=== PATIENT | female | born 1935 | race Asian ===

== ENCOUNTER 2022-07-25 08:13 | Observation (INO) | payer MEDICAID, SELFPAY ==
[2022-07-25] VITALS (15 sets, daily range): BP systolic 138–163; BP diastolic 43–126; PULSE 59–85; RESP 14–18; TEMP 36.3–36.6; O2SAT 96–100; BMI 23.2; BMI 23.3
--- NOTE | 2022-07-25 08:25 | RAD_ITS ---
STUDY: X-RAY - RIGHT WRIST REASON FOR EXAM: Female, 86 years old. Injury/Pain TECHNIQUE: 3 view(s) of the wrist were obtained. COMPARISON: None. FINDINGS: Comminuted fracture of the distal radial metaphysis with extension to the articular surface. Normal radiocarpal articulation. There is a dorsal dislocation of the distal radial ulnar joint. Normal carpal bones. Normal carpal articulations. Normal carpometacarpal articulation of the thumb. Normal second through fifth carpometacarpal articulations. Normal visualized metacarpal bones. Soft tissue swelling. RAD/Wrist min 3 Views IMPRESSION: Comminuted fractures of the distal radial metaphysis with extension to the articular surface. Dorsal dislocation of the distal ulna at the level of the radial ulnar joint. Electronically Signed: Bay Mckenzie MD at 9:34 EDT ,
--- NOTE | 2022-07-25 08:33 | CT_ITS ---
STUDY: CT CERVICAL SPINE WITHOUT CONTRAST REASON FOR EXAM: Female, 86 years old. Injury/Pain RADIATION DOSAGE (If Supplied By Facility): CTDIvol = ( 12.30 ) mGy, DLP = ( 266.41 ) mGycm TECHNIQUE: High resolution transaxial imaging was performed without contrast material. Sagittal and coronal images were reconstructed. Individualized dose optimization techniques were used for this CT. COMPARISON: None FINDINGS: Normal craniovertebral junction. There are degenerative changes of the anterior atlantoaxial articulation. Normal odontoid process. There is straightening of the normal cervical lordosis. Normal vertebral bodies and posterior osseous elements. C2-3: Normal endplates. Normal disc height and morphology. Normal central canal and intervertebral neuroforamina. C3-4: Mild degree of disc space narrowing. Facet joint osteoarthritis and hypertrophy. Uncovertebral arthrosis. Mild degree of bilateral neural foraminal stenosis. C4-5: Marked degree of disc space narrowing. Spondylosis. Uncovertebral arthrosis. Bilateral neural foraminal stenosis. Mild degree of central canal stenosis. C5-6: Marked degree of disc space narrowing. Spondylosis. Mild degree of bilateral neural foraminal stenosis. C6-7: Moderate degree of disc space narrowing. Spondylosis. Bilateral neural foraminal stenosis worse on the right side. C7-T1: Normal endplates. Normal disc height and morphology. Normal central canal and intervertebral neuroforamina. Normal visualized soft tissue structures. CT/Spine Cervical without Contras IMPRESSION: Multilevel degenerative changes, as described above. Electronically Signed: Bay Mckenzie MD at 9:31 EDT ,
--- NOTE | 2022-07-25 08:33 | RAD_ITS ---
STUDY: X-RAY - PELVIS AND LEFT HIP REASON FOR EXAM: Female, 86 years old. Left hip pain following a fall. TECHNIQUE: 3 views of the pelvis and hip. COMPARISON: None. FINDINGS: There is a non-specific bowel gas pattern. There are multiple calcified phleboliths. Degenerative changes of the lower lumbar spine. Normal bilateral iliac wings, sacroiliac joints and visualized sacrum. Normal bilateral superior and inferior pubic rami. Normal pubic symphysis. Normal bilateral ischial tuberosities. Normal visualized femoral head. Normal acetabulum. Normal hip joint. RAD/HIP, UNI W/ Pelvis 2-3 Views IMPRESSION: No acute abnormality is seen. Electronically Signed: Bay Mckenzie MD at 9:34 EDT ,
--- NOTE | 2022-07-25 08:33 | CT_ITS ---
STUDY: CT BRAIN WITHOUT CONTRAST REASON FOR EXAM: Female, 86 years old. An injury due to a fall. RADIATION DOSAGE (If Supplied By Facility): CTDIvol = ( 44.99 ) mGy, DLP = ( 779.24 ) mGycm TECHNIQUE: Transaxial CT imaging of the brain was performed without administration of intravenous contrast material. Individualized dose optimization techniques were used for this CT. COMPARISON: No relevant priors. FINDINGS: Normal soft tissue structures. Normal calvarium. There is mild cerebral atrophy with widening of the extra-axial spaces and ventricular dilatation. There are areas of decreased attenuation within the white matter tracts of the supratentorial brain, consistent with microvascular disease changes. There are small punctate calcifications of the basal ganglia which are seen in the aging brain as a normal variant. Normal brainstem. Dense calcifications are seen in both cerebellar hemispheres. There is no intracranial hemorrhage. There are no findings of an acute ischemic infarction. Air-fluid levels are seen in both maxillary sinuses more prominent on the left side. There is opacification of the ethmoid sinuses and mucosal thickening of the frontal sinuses. Mucosal thickening of the anterior aspect of the sphenoid sinus. CT/Brain/Head without Contrast IMPRESSION: Chronic involutional changes of the brain. Dense calcification in the cerebellar hemispheres bilaterally as well as in the basal ganglia. Pansinusitis. Electronically Signed: Bay Mckenzie MD at 9:30 EDT ,
--- NOTE | 2022-07-25 08:39 | EDS_ITS ---
HPI History of Present Illness Chief Complaint: Upper Extremity Injury Informant: patient, family and EMS Narrative Narrative: Patient is an 86-year-old female presenting with right wrist injury. She is right-hand dominant. Patient apparently tripped on her shoes this morning and fell. She did hit the back of her head. She is complaining of pain, deformity and open fracture of her right wrist in addition to mild headache and left hip pain. She takes 81 mg aspirin daily. Denies any prior orthopedic injury to her wrist. Denies any associated numbness or tingling. No other complaints at this time. No report of loss of consciousness. Tetanus Immunization: Unknown [facility] Medical History unable to obtain Home Medications amlodipine 5 mg tablet 5 mg PO PRN PRN htn 07/25/22 [History Last Taken Unknown] aspirin 81 mg capsule 81 mg PO DAILY 07/25/22 [History Last Taken Unknown] losartan 50 mg tablet 50 mg PO BID 07/25/22 [History Last Taken Unknown] pantoprazole 40 mg tablet,delayed release 40 mg PO DAILY 07/25/22 [History Last Taken Unknown] Allergy/AdvReac Type Severity Reaction Status Date / Time Penicillins [PCN] Allergy NEEDS Verified 07/25/22 08:16 FOLLOW-UP Social History Smoking Status: Unknown if ever smoked ROS ROS ED Constitutional Constitutional ED: Denies chills or fever(s) Eyes Eyes: Denies change in vision ENT ENT ED: Denies rhinorrhea or sore throat Cardiovascular Cardiovascular: Denies chest pain Respiratory/Chest Respiratory/Chest: Denies cough Gastrointestinal Gastrointestinal: Denies nausea or vomiting Musculoskeletal Musculoskeletal: Reports other Details: Right wrist pain, left hip pain Integumentary Reports other Details: Laceration to right wrist with open fracture Neurologic Neurologic: Reports headache(s); Denies paresthesias or weakness Psychiatric Psychiatric: Denies anxiety Hematologic/Lymphatic Hematologic/Lymphatic: Denies easy bleeding or easy bruising EXAM Physical Exam Const Vital Signs: 07/25/22 08:17 Temperature 97.5 F L Temperature Source Temporal Pulse Rate 77 Respiratory Rate 14 Blood Pressure 138/96 H Blood Pressure Mean 110 Pulse Ox 99 Oxygen Delivery Method Room Air Positive well nourished and well developed General Appearance ED: well developed and NAD HEENT Reports moist mucous membranes HEENT Narrative: No hemotympanum, no signs of facial trauma, no epistaxis or nasal septal hematoma normocephalic and atraumatic; Negative for tenderness Eyes PERRL and EOMs intact bilaterally Neck full ROM and supple Neck Narrative: No midline tenderness Chest Wall inspection of chest normal and palpation of chest normal Resp normal respiratory effort and clear to auscultation bilaterally Cardio regular rate and regular rhythm Cardio Narrative: 2+ bilateral radial pulses, brisk capillary refill of the right hand GI non-tender and non-distended Extremity Extremity Narrative: Deformity with open fracture of the distal ulna of the right wrist. Movement of the fingers intact and sensation intact of the fingers. Patient has some tenderness with logroll of the left hip. No rotational deformity. Pelvis is stable. No other bony tenderness or deformity appreciated. Neuro oriented x3, CN's II-XII intact bilaterally, moves all extremities, no focal motor deficits and no sensory deficits noted Psych mental status grossly normal Skin Skin Narrative: 3 cm full-thickness laceration of the distal right wrist overriding the ulna MDM MDM MDM Narrative Medical decision making narrative: Patient is evaluated after mechanical fall. She has an obvious open distal radius/ulnar fracture. Wet to dry dressing is placed when gentle traction and pressure did not spontaneously reduce the fracture. She is neuro vastly intact distally. She is given fentanyl for pain and IV cefazolin antibiotic prophylaxis. Tetanus is updated. Limited trauma work-up including head CT, C-spine as well as a hip x-ray also obtained. No other acute injuries are seen. X-rays interpreted by myself as well as radiology are significant for distal comminuted radial fracture with associated open dislocation of the distal ulna. Case is discussed with Ortho, Dr. Marshall, who will take the patient to the OR for intraoperative cleanout and reduction. Patient is admitted to the hospital service for request of orthopedics. Patient is kept n.p.o., start maintenance fluids and given her morning blood pressure medicine, losartan, per her request. Patient is redosed with fentanyl in the emergency room. She is instantly found to be anemic with uncertain chronicity. No obvious signs of hemorrhagic shock or active bleeding. Lab Data Attestation: I reviewed the patient's lab results. Rhythm Strip Rhythm Strip: Sinus Rhythm Rate: 82 Ectopy: None EKG Initial EKG: Attestation: I personally reviewed and interpreted this EKG as follows: Interpretation: Sinus Rhythm Comments: Normal sinus rhythm at a rate of 82 Normal axis Normal intervals Normal ST segment Prior EKG tracings: not available for review Prior: No Prior Discharge Plan Triage Chief Complaint: Upper Extremity Injury ED Provider: Meghan Quiroz Dx/Rx/DC Orders Clinical Impression: Open fracture of distal end of right radius, Open dislocation of distal end of right ulna, Need for [id number] (Tdap) vaccine, Anemia, Fall on same level from tripping, Closed head injury Primary Care Provider: ANIRUDH HURD Disposition Disposition: [facility] Lab / Micro Data Attestation: I reviewed the patient's lab results. Result Diagrams: 07/25/22 08:42 07/25/22 08:42 Labs: Laboratory Results - last 24 hr 07/25/22 08:42: WBC 8.2, RBC 3.10 L, Hgb 9.8 L, Hct 30.1 L, MCV 97.1, MCH 31.6, MCHC 32.6, RDW Std Deviation 41.5, RDW Coeff of Douglas 11.9, Plt Count 227, MPV 9.5, Immature Gran % (Auto) 0.400, Neut % (Auto) 71.1 H, Lymph % (Auto) 13.4 L, [place] % (Auto) 9.2, Eos % (Auto) 5.0, Baso % (Auto) 0.9, Absolute Neuts (auto) 5.8, Absolute Lymphs (auto) 1.09, Nucleated RBC % 0 07/25/22 08:42: Sodium 140, Potassium 4.4, Chloride 105, Carbon Dioxide 29.0, Anion Gap 6, BUN 26 H, Creatinine 0.80, Estim Creat Clear Calc 44.40, Est GFR (MDRD) Af Amer 88, Est GFR (MDRD) Non-Af 73, BUN/Creatinine Ratio 32.7 H, Glucose 114 H, Calcium 9.2 07/25/22 08:42: PT 12.4, INR 1.0 07/25/22 08:42: Phosphorus 3.6, Magnesium 2.2 Rhythm Strip Rhythm Strip: Sinus Rhythm Rate: 82 Ectopy: None Radiology Impression Wrist X-Ray 07/25/22 08:25 IMPRESSION: Comminuted fractures of the distal radial metaphysis with extension to the articular surface. Dorsal dislocation of the distal ulna at the level of the radial ulnar joint. Electronically Signed: Bay Mckenzie MD at 9:34 EDT , Brain CT 07/25/22 08:33 IMPRESSION: Chronic involutional changes of the brain. Dense calcification in the cerebellar hemispheres bilaterally as well as in the basal ganglia. Pansinusitis. Electronically Signed: Bay Mckenzie MD at 9:30 EDT , Cervical Spine CT 07/25/22 08:33 IMPRESSION: Multilevel degenerative changes, as described above. Electronically Signed: Bay Mckenzie MD at 9:31 EDT , Hip/Pelvis X-Ray 07/25/22 08:33 IMPRESSION: No acute abnormality is seen. Electronically Signed: Bay Mckenzie MD at 9:34 EDT , Forearm X-Ray 07/25/22 09:05 IMPRESSION: Diffuse soft tissue swelling. Comment a fracture of the distal metaphysis with extension to the articular surface. Dorsal subluxation of the ulna at the distal radial ulnar joint. Electronically Signed: Bay Mckenzie MD at 9:32 EDT ,
[2022-07-25] MEDS: fentaNYL 100 MCG/2 ML Ampul 50 MCG IV ×2 (08:43→10:41)
[2022-07-25] MEDS: Diphth,Pertuss(Acell),Tet Vac 0.5 ML Vial IM (08:45)
[2022-07-25 08:56] LABS: Absolute Lymphocyte Count 1.09 X10^3/uL (0.83-4.51); Absolute Neutrophil Count 5.8 X10^3/uL (2.0-7.7); Basophil# 0.07 X10^3/uL; Basophil% 0.9 % (0-1); Eosinophil# 0.41 X10^3/uL; Hematocrit 30.1 % (37-47); Hemoglobin 9.8 g/dL (12.0-15.0); Lymphocyte # 1.09 X10^3/ul (0.83-4.51); Lymphocyte % 13.4 % (19-41); Mean Corp Hgb Conc 32.6 g/dL (32-36); Mean Corpuscular Hgb 31.6 pg (27.0-32.0); Mean Corpuscular Volume 97.1 fL (81-99); Mean Platelet Vol. 9.5 fl (6.2-12.0); Monocyte# 0.75 X10^3/uL; Monocyte% 9.2 % (0-10); NRBC Flagged by Analyzer 0 % (0-5); Neutrophil # 5.81 X10^3/uL (2.7-7.7); Neutrophil % 71.1 % (47-70); Platelet Count 227 K/mm3 (150-450); RBC Distribution Width CV 11.9 % (11.6-14.6); RBC Distribution Width SD 41.5 fl (35.1-43.9); White Blood Count 8.2 K/mm3 (4.4-11.0)
[2022-07-25 09:03] LABS: Prothrombin Time (Protime)PT. 12.4 SECONDS (11.7-14.9)
--- NOTE | 2022-07-25 09:05 | RAD_ITS ---
STUDY: X-RAY - RIGHT RADIUS AND ULNA REASON FOR EXAM: Female, 86 years old. Injury/Pain TECHNIQUE: 2 view(s) of the forearm. COMPARISON: None. FINDINGS: There is non-specific soft tissue swelling. Comminuted fracture of the distal radial metaphysis with extension to the articular surface. Dorsal subluxation of the ulna at the distal radial ulnar joint. RAD/Forearm 2 Views IMPRESSION: Diffuse soft tissue swelling. Comment a fracture of the distal metaphysis with extension to the articular surface. Dorsal subluxation of the ulna at the distal radial ulnar joint. Electronically Signed: Bay Mckenzie MD at 9:32 EDT ,
[2022-07-25 09:11] LABS: Anion Gap 6 (5-15); BUN 26 mg/dL (7-18); BUN/Creat Ratio 32.7 RATIO (10-20); Calcium,Total 9.2 mg/dL (8.5-10.1); Chloride 105 mmol/L (98-107); EST Glomerular Filtration Rate 73 mL/min (>60); Est Glom Filt Rate - Afr Amer 88 mL/min (>60); Glucose 114 mg/dL (74-106); Potassium 4.4 mmol/L (3.5-5.1); Sodium Level 140 mmol/L (136-145)
[2022-07-25] MEDS: Cefazolin 2 GM in 0.9% Normal Saline 100 ML IV (09:16)
--- NOTE | 2022-07-25 09:38 | EKG12_ITS ---
Test Reason : PRE-OP Blood Pressure : / mmHG Vent. Rate : 082 BPM Atrial Rate : 082 BPM P-R Int : 158 ms QRS Dur : 088 ms QT Int : 364 ms P-R-T Axes : 084 071 051 degrees QTc Int : 425 ms Normal sinus rhythm Normal ECG Confirmed by PEDRO ACOSTA, LORI ([id number]), state editor BLAINE HENRY ([id number]) on 07/26/2022 1:26:04 PM Referred By: SHAUNA Confirmed By:TOM VASQUEZ MD
--- NOTE | 2022-07-25 09:40 | NURSING ---
NO OLD EKGS
[2022-07-25] MEDS: 0.9% Normal Saline 1,000 ML 100 ML IV (09:49)
--- NOTE | 2022-07-25 10:13 | NURSING ---
DR PADILLA FOR DR VILLATORO
--- NOTE | 2022-07-25 10:23 | HP.PCM.HOS_ITS ---
HPI - General General Date of Admission: 07/25/22 Date of Service: 07/25/22 Chief Complaint: Fall and fracture of the right wrist HPI Narrative mavis ALLAN a 86 F was brought to ED by EMS after she tripped on the shoe and fall. She fell backward and hit her head and on her right dominant hand and had severe pain. Patient complains of pain over right side wrist 10/10 intensity, constant, aggravated by movement. Patient is being given pain medication. Swelling around the right wrist area. No fever. No dysuria/burning micturition. No abdominal pain. No loss of consciousness. In ED, she had an x-ray which shows open right distal radius fracture with dislocated ulna. X-ray of wrist and forearm reviewed myself and agree with the report. Patient being evaluated by orthopedic surgeon and plan is to take her to the OR. Vitals reviewed. BP 142/67. Patient has history of hypertension and GERD and is on losartan, amlodipine and pantoprazole. Denies chronic cardiac disease including CHF, coronary artery/NV or arrhythmia. Denies chronic lung disease. No smoking history. No chronic alcohol use or substance use. Family history is noncontributory to the patient fall and fracture. [facility] Medical History unable to obtain Home Medications amlodipine 5 mg tablet 5 mg PO PRN PRN htn 07/25/22 [History Last Taken Unknown] aspirin 81 mg capsule 81 mg PO DAILY 07/25/22 [History Last Taken Unknown] losartan 50 mg tablet 50 mg PO BID 07/25/22 [History Last Taken Unknown] pantoprazole 40 mg tablet,delayed release 40 mg PO DAILY 07/25/22 [History Last Taken Unknown] Allergy/AdvReac Type Severity Reaction Status Date / Time Penicillins [PCN] Allergy NEEDS Verified 07/25/22 08:16 FOLLOW-UP Social History Smoking Status: Unknown if ever smoked ROS ROS Narrative Constitutional: In severe pain because of her right wrist. HEENT: Reports systems reviewed and no addt'l complaints, except as documented Respiratory/Chest: Denies chest pain, shortness of breath at rest or with exertion Gastrointestinal: Denies coffee ground emesis, hematemesis or vomiting Genitourinary: Denies burning urination or new urinary tract symptoms Musculoskeletal: As mentioned in HPI. No other fracture of extremity pain Neurologic: Denies seizure-like activity. No LOC. skin: Open fracture of right wrist area with bandage on. No laceration on head Endocrinology: Reports systems reviewed and no addt'l complaints, except as documented Hematologic/Lymphatic: Reports systems reviewed and no addt'l complaints, except as documented Rest 14 ROS are negative except as mentioned in HPI Vital Signs Vital Signs Vital Signs: 07/25/22 08:17 07/25/22 09:16 07/25/22 10:02 Temperature 97.5 F L Temperature Source Temporal Pulse Rate 77 85 Respiratory Rate 14 Blood Pressure 138/96 H 144/55 H 142/67 H Blood Pressure Mean 110 84 92 Pulse Ox 99 99 97 Oxygen Delivery Method Room Air Room Air Room Air Weight Weight: 135 lb 5.821 oz Body Mass Index (BMI) 23.2 Physical Exam Narrative General: Alert, Oriented x3, Cooperative in moderate distress due to pain. HEENT: Atraumatic, PERRLA, EOMI, Normocephalic Oral: No Gingival or Mucosal Lesions/ Ulcerations Neck: Supple, No JVD, Negative Carotid Bruits Lungs: Air entry equal in bilateral lung bases. No crepitation/rhonchi Cardiovascular: Regular rate, Regular Rhythm, Normal S1, Normal S2, No murmurs Abdomen: Bowel Sounds Present, Soft, Non Tender, Non-Distended : No renal angle tenderness. No suprapubic tenderness. Extremities: No edema, Capillary Refill Less than 3 Seconds Skin: Open fracture of right wrist radius. Musculoskeletal: Right wrist is medially deviated and in supine position. Swelling with tenderness. Covered with bandage. No tenderness of other joints of extremity. Neurological: Cranial nerves II-XII grossly intact, DTR 2+/4 and Symmetrical, Neuro grossly intact Psych/Mental Status: Flat affect. Results Lab / Micro Data Result Diagrams: 07/25/22 08:42 07/25/22 08:42 Labs: Laboratory Results - last 24 hr 07/25/22 08:42: WBC 8.2, RBC 3.10 L, Hgb 9.8 L, Hct 30.1 L, MCV 97.1, MCH 31.6, MCHC 32.6, RDW Std Deviation 41.5, RDW Coeff of [place] 11.9, Plt Count 227, MPV 9.5, Immature Gran % (Auto) 0.400, Neut % (Auto) 71.1 H, Lymph % (Auto) 13.4 L, [place] % (Auto) 9.2, Eos % (Auto) 5.0, Baso % (Auto) 0.9, Absolute Neuts (auto) 5.8, Absolute Lymphs (auto) 1.09, Nucleated RBC % 0 07/25/22 08:42: Sodium 140, Potassium 4.4, Chloride 105, Carbon Dioxide 29.0, Anion Gap 6, BUN 26 H, Creatinine 0.80, Estim Creat Clear Calc 44.40, Est GFR (MDRD) Af Amer 88, Est GFR (MDRD) Non-Af 73, BUN/Creatinine Ratio 32.7 H, Glucose 114 H, Calcium 9.2 07/25/22 08:42: PT 12.4, INR 1.0 Radiology Impression Wrist X-Ray 07/25/22 08:25 IMPRESSION: Comminuted fractures of the distal radial metaphysis with extension to the articular surface. Dorsal dislocation of the distal ulna at the level of the radial ulnar joint. Electronically Signed: Bay Mckenzie MD at 9:34 EDT , Brain CT 07/25/22 08:33 IMPRESSION: Chronic involutional changes of the brain. Dense calcification in the cerebellar hemispheres bilaterally as well as in the basal ganglia. Pansinusitis. Electronically Signed: Bay Mckenzie MD at 9:30 EDT , Cervical Spine CT 07/25/22 08:33 IMPRESSION: Multilevel degenerative changes, as described above. Electronically Signed: Bay Mckenzie MD at 9:31 EDT , Hip/Pelvis X-Ray 07/25/22 08:33 IMPRESSION: No acute abnormality is seen. Electronically Signed: Bay Mckenzie MD at 9:34 EDT , Forearm X-Ray 07/25/22 09:05 IMPRESSION: Diffuse soft tissue swelling. Comment a fracture of the distal metaphysis with extension to the articular surface. Dorsal subluxation of the ulna at the distal radial ulnar joint. Electronically Signed: Bay Mckenzie MD at 9:32 EDT , Assessment & Plan Assessment/Plan (1) Colles' fracture: (2) Dislocation of right ulnar styloid: PLAN: Plan This 86-year-old female is being admitted after trip and fall resulting into open right wrist fracture 1. Open comminuted fracture of distal right metaphysis with extension to the articular surface and dorsal dislocation of distal end of ulna after fall probably due to underlying osteoporosis: [facility] Pain control. PT and OT ordered. X-ray individually reviewed and is documented as above. is being consulted. Plan is OR for ORIF. CT head and C-spine without contrast in ED reviewed. No acute abnormality but chronic changes. Hip and pelvis x-ray no acute abnormality Perioperative risk evaluation: Prior to fall, patient was active did not had restriction in walking or climbing stairs. No shortness of breath or dyspnea on exertion. Patient did not have chronic cardiac disease or chronic lung disease. Overall, she is low to moderate perioperative risk for moderate risk procedure. Electrolytes sodium, potassium, magnesium and phosphorus are in normal range. 2. Hypertension: BP is 143/53. Heart rate sinus rhythm. Twelve-lead EKG normal sinus rhythm at 82 bpm, QTC 425 ms. Chest x-ray initially reviewed and no active cardiopulmonary abnormality. 3. GERD: On PPI. 4. VTE prophylaxis, moderate risk: Heparin 5000 subcutaneous every 8 hourly started after surgery when hemostasis is controlled. Bilateral SCDs Living will/advanced directive/end of life care: Patient does not have living will or advanced directive. Patient next to kin is her son. I talked to patient's son over the phone and daughter present in the room. After discussion of benefits/risks procedures involved with full code, DNR CC arrest and DNR CC, all 3 agreed for full code. They will make living will/advanced directive with power of criminal attorney for health later on. Patient, her son and daughter do want artificial life support including intubation, tube feed, ventilator and/chest compression, central venous cath eter, vasopressor and DC shock if needed Total time spent in [id number] encounter in discussion of advanced directive 16 minutes. Clinical Impression(s) from Imaging Studies Wrist X-Ray 07/25/22 08:25 IMPRESSION: Comminuted fractures of the distal radial metaphysis with extension to the articular surface. Dorsal dislocation of the distal ulna at the level of the radial ulnar joint. Brain CT 07/25/22 08:33 IMPRESSION: Chronic involutional changes of the brain. Dense calcification in the cerebellar hemispheres bilaterally as well as in the basal ganglia. Pansinusitis. Cervical Spine CT 07/25/22 08:33 IMPRESSION: Multilevel degenerative changes, as described above. Hip/Pelvis X-Ray 07/25/22 08:33 IMPRESSION: No acute abnormality is seen. Forearm X-Ray 07/25/22 09:05 IMPRESSION: Diffuse soft tissue swelling. Comment a fracture of the distal metaphysis with extension to the articular surface. Dorsal subluxation of the ulna at the distal radial ulnar joint. Chest X-Ray 07/25/22 10:58 IMPRESSION: Hyperinflation. The lungs are clear. Electronically Signed: Bay Mckenzie MD at 11:11 EDT , Charges/Coding Visit Charges OBSV E&M: 78606 Initial observation care L3 Procedures Hospitalists Procedures: [id number] Advncd Care Plan 30 Min
[2022-07-25] MEDS: Losartan Potassium 50 MG Tablet PO (10:31)
--- NOTE | 2022-07-25 10:32 | NURSING ---
MED SURG OBS VALERIE OPEN DISTAL RADIUS/ULNA FRACTURE
[2022-07-25 10:46] LABS: Magnesium 2.2 mg/dL (1.6-2.6); Phosphorus 3.6 mg/dL (2.5-4.9)
--- NOTE | 2022-07-25 10:58 | RAD_ITS ---
STUDY: X-RAY CHEST REASON FOR EXAM: Female, 86 years old. Pre op TECHNIQUE: Single AP portable view of the chest. COMPARISON: None. FINDINGS: Hyperinflation. The lungs are clear. There is no demonstrated pleural abnormality. Normal size heart. Normal mediastinum and humble. Normal visualized pulmonary arteries. There is atherosclerotic calcification of the aortic arch with tortuosity. There are degenerative changes of the visualized thoracic spine. Normal visualized ribs, clavicles, and shoulders. There is no demonstrated abnormality of the visualized soft tissue structures of the upper abdomen. RAD/Chest 1 View (Portable) IMPRESSION: Hyperinflation. The lungs are clear. Electronically Signed: Bay Mckenzie MD at 11:11 EDT ,
[2022-07-25] MEDS: Lactated Ringers 1,000 ML 100 ML IV (12:26)
--- NOTE | 2022-07-25 13:06 | CONS.ORTHO ---
HPI Consult Data Date of Consult: 07/25/22 HPI Narrative HPI Narrative: ADOLFO PRESLEY, is a 86 F who presents To [facility] after mechanical fall on an outstretched right hand earlier this morning. Immediate bleeding, gross deformity and exposed bone was noted in her right wrist. Patient is right-hand dominant. Patient was brought to [facility] emergency department where x-rays revealed a comminuted distal radius fracture with suspected DRUJ instability and soft tissue gas consistent with a open fracture. Patient was seen by the emergency room physician where IV Ancef was administered, tetanus updated. Provisional irrigation was performed. Physician was unable to reduce the bone underneath the skin. Moist gauze was placed over top of the bone and laceration. Patient denies any numbness or tingling. Denies any antecedent right wrist surgery or problems. Denies fevers, chills, nausea vomiting, chest pain or shortness of breath. Patient has had nothing to eat or drink since arrival to hospital this morning. [facility] Medical History unable to obtain Home Medications amlodipine 5 mg tablet 5 mg PO PRN PRN htn 07/25/22 [History Last Taken 07/25/22 09:00] aspirin 81 mg capsule 81 mg PO DAILY 07/25/22 [History Last Taken 07/25/22 09:00] atorvastatin 20 mg tablet 20 mg PO DAILY cholesterol 07/25/22 [History Last Taken Unknown] docusate sodium 100 mg capsule 100 mg PO DAILY health maintenance 07/25/22 [History Last Taken 07/25/22 09:00] losartan 50 mg tablet 50 mg PO BID 07/25/22 [History Last Taken 07/25/22 09:00] multivitamin 1 tab PO DAILY health maintence 07/25/22 [History Last Taken 07/25/22 09:00] pantoprazole 40 mg tablet,delayed release 40 mg PO DAILY 07/25/22 [History Last Taken 07/25/22 09:00] vitamin B complex 1 tab PO DAILY health maintenance 07/25/22 [History Last Taken 07/25/22 09:00] Allergy/AdvReac Type Severity Reaction Status Date / Time Penicillins [PCN] Allergy NEEDS Verified 07/25/22 08:16 FOLLOW-UP Social History Smoking Status: Never smoker ROS ROS Narrative 12 point review of systems obtained, negative is less otherwise noted in HPI. Vital Signs Vital Signs Vital Signs: 07/25/22 08:17 07/25/22 09:16 07/25/22 10:02 Temperature 97.5 F L Temperature Source Temporal Pulse Rate 77 85 Respiratory Rate 14 Respiratory Effort Respiratory Depth Respiratory Pattern Blood Pressure 138/96 H 144/55 H 142/67 H Blood Pressure Mean 110 84 92 Blood Pressure Source Blood Pressure Position Blood Pressure Location Pulse Ox 99 99 97 Oxygen Delivery Method Room Air Room Air Room Air 07/25/22 10:44 07/25/22 11:03 07/25/22 12:10 Temperature 98 F 97.7 F L Temperature Source Temporal Temporal Pulse Rate 85 76 Respiratory Rate 14 18 Respiratory Effort Respiratory Depth Respiratory Pattern Blood Pressure 142/67 H 143/53 H 161/70 H Blood Pressure Mean 92 83 100 Blood Pressure Source Monitor Blood Pressure Position Semi-Fowlers Blood Pressure Location Left Arm Pulse Ox 97 98 98 Oxygen Delivery Method Room Air Room Air Room Air 07/25/22 12:28 Temperature Temperature Source Pulse Rate Respiratory Rate Respiratory Effort Normal Non-Labored Respiratory Depth Normal Respiratory Pattern Normal Blood Pressure Blood Pressure Mean Blood Pressure Source Blood Pressure Position Blood Pressure Location Pulse Ox Oxygen Delivery Method Room Air Weight Weight: 127 lb 6.835 oz Body Mass Index (BMI) 23.3 Physical Exam Narrative General -A&Ox3, NAD, appears stated age. Vital signs stable, afebrile. Respiratory -normal work of breathing, no intercostal retractions. CV -pulses regular, brisk capillary refill ?4 limbs. Abdomen-soft, nontender, nondistended. No guarding, rigidity, rebound tenderness. Musculoskeletal/neurologic -full range of motion nontender throughout bilateral lower extremities, left upper extremity with full sensation and strength in all dermatomes and myotomes. No midline cervical tenderness. Right upper extremity-obvious deformity in exposed ulnar head right wrist. Longitudinal laceration measuring 3 cm long distal wrist. Closed reduction performed with reduction of the ulna underneath the skin. Cardinal motions right hand are intact. Slow venous oozing is noted from the laceration. Brisk capillary fill in the fingertips. Sensation intact to light touch in all dermatomes of the right hand. Appropriately tender over the wrist. Nontender over the elbow and upper arm. Lab / Micro Data Result Diagrams: 07/25/22 08:42 07/25/22 08:42 Labs: Laboratory Results - last 24 hr 07/25/22 08:42: WBC 8.2, RBC 3.10 L, Hgb 9.8 L, Hct 30.1 L, MCV 97.1, MCH 31.6, MCHC 32.6, RDW Std Deviation 41.5, RDW Coeff of [place] 11.9, Plt Count 227, MPV 9.5, Immature Gran % (Auto) 0.400, Neut % (Auto) 71.1 H, Lymph % (Auto) 13.4 L, [place] % (Auto) 9.2, Eos % (Auto) 5.0, Baso % (Auto) 0.9, Absolute Neuts (auto) 5.8, Absolute Lymphs (auto) 1.09, Nucleated RBC % 0 07/25/22 08:42: Sodium 140, Potassium 4.4, Chloride 105, Carbon Dioxide 29.0, Anion Gap 6, BUN 26 H, Creatinine 0.80, Estim Creat Clear Calc 44.40, Est GFR (MDRD) Af Amer 88, Est GFR (MDRD) Non-Af 73, BUN/Creatinine Ratio 32.7 H, Glucose 114 H, Calcium 9.2 07/25/22 08:42: PT 12.4, INR 1.0 07/25/22 08:42: Phosphorus 3.6, Magnesium 2.2 Rhythm Strip Rhythm Strip: Sinus Rhythm Rate: 82 Ectopy: None Radiology Impression Wrist X-Ray 07/25/22 08:25 IMPRESSION: Comminuted fractures of the distal radial metaphysis with extension to the articular surface. Dorsal dislocation of the distal ulna at the level of the radial ulnar joint. Electronically Signed: Bay Mckenzie MD at 9:34 EDT , Brain CT 07/25/22 08:33 IMPRESSION: Chronic involutional changes of the brain. Dense calcification in the cerebellar hemispheres bilaterally as well as in the basal ganglia. Pansinusitis. Electronically Signed: Bay Mckenzie MD at 9:30 EDT , Cervical Spine CT 07/25/22 08:33 IMPRESSION: Multilevel degenerative changes, as described above. Electronically Signed: Bay Mckenzie MD at 9:31 EDT , Hip/Pelvis X-Ray 07/25/22 08:33 IMPRESSION: No acute abnormality is seen. Electronically Signed: Bay Mckenzie MD at 9:34 EDT , Forearm X-Ray 07/25/22 09:05 IMPRESSION: Diffuse soft tissue swelling. Comment a fracture of the distal metaphysis with extension to the articular surface. Dorsal subluxation of the ulna at the distal radial ulnar joint. Electronically Signed: Bay Mckenzie MD at 9:32 EDT , Chest X-Ray 07/25/22 10:58 IMPRESSION: Hyperinflation. The lungs are clear. Electronically Signed: Bay Mckenzie MD at 11:11 EDT , Assessment & Plan Assessment/Plan (1) Open fracture of right distal radius and ulna: PLAN: Open fracture right distal radius and ulna -Closed reduction performed emergency department achieving reduction of the bone underneath the skin. Sugar-tong splint was applied. We will proceed with irrigation debridement and fixation of distal radius fracture. Spanning plate fixation is planned due to the immense comminution of the distal radius and soft tissue injury. The risk, benefits, alternatives to the procedure reviewed with the patient at length and informed consent obtained. Scheduled Ancef 1 g every 8 hours until 24 hours postoperatively. Further recommendations pending surgical procedure. N.p.o., maintenance IV fluids.
--- NOTE | 2022-07-25 16:45 | RAD_ITS ---
STUDY: X-RAY - RIGHT WRIST REASON FOR EXAM: Female, 86 years old. ORIF TECHNIQUE: 5 intraoperative view(s) of the wrist were obtained. Fluoroscopy time dosage was not provided. COMPARISON: Right wrist, 07/25/2022 (913). FINDINGS: The images demonstrate plate along the posterior aspect of the hand and wrist from the second metacarpal to the mid radial shaft. There is mildly improved alignment of the distal fibular fracture. There is also a plate and screws along the dorsal aspect of the distal ulna. Please refer to the operative report for further details RAD/Wrist min 3 Views IMPRESSION: Internal fixation of a right wrist fracture in the OR. Electronically Signed: Vasquez Borrego DO at 18:45 EDT ,
[2022-07-25] MEDS: Cefazolin 1 GM/50 ML BAG IV (17:04)
--- NOTE | 2022-07-25 18:58 | OP.PCM_ITS ---
Report of Operation Date of Procedure: 07/25/22 Description of Surgical Findings:: Preoperative diagnosis: Right open distal radius and ulna fractures Postoperative diagnosis: Right grade II open distal radius and ulna fractures Procedure: 1. Irrigation and debridement of skin, subcutaneous tissue, fascia, and bone 2 x 1 cm 2. Open reduction internal fixation right ulnar styloid 3. Application of dorsal spanning plate right wrist Surgeon: Mumtaz Marshall DO Anesthesia: General endotracheal Anesthesiologist: Dr. Edwards Complications: None apparent Drains: None Estimated blood loss: 100 cc Urinary output: None recorded IV fluids: 900 cc crystalloid Specimens: None Surgical implants: Arthrex dorsal spanning plate, ulnar styloid hook plate Surgical indications: This is an 86-year-old female who is visiting family from [place] who sustained a mechanical fall this morning on an outstretched right hand. She sustained an open distal radius and ulna fracture. X-rays at [facility] emergency department revealed a severely comminuted intra- articular distal radius fracture. The ulna head herniated out the skin with associated 2 cm skin tear laceration. I saw the patient in consultation. IV Ancef was administered upon arrival and tetanus was updated. I recommended irrigation debridement of her wrist with open reduction internal fixation possible dorsal spanning plate application of the wrist. The risk, benefits, alternatives to procedure reviewed with patient at length and she agreed to proceed. We reviewed the need for removal of the dorsal spanning plate in the future after fracture had healed. Risks included but were not limited to bleeding, infection, loss of life or limb, need for additional surgery, persistent pain, nonhealing bone or wounds, neurovascular injury, DVT or PE, risk of anesthesia. Patient expressed understands risks and wished proceed with surgery. Description of procedure: Patient was seen in preoperative holding area. She was identified by name, medical record number, date of . The operative extremity was marked with a surgical marker. We confirmed informed consent with the patient and all questions were answered to her satisfaction. At time of her procedure, patient was brought to the operative suite and po sitioned supine on a standard operating table. All bony prominences were well- padded. General anesthesia was administered. After adequate anesthesia, a well-padded pneumatic tourniquet was applied to the upper arm of the operative extremity. We then spun the bed 90 degrees. Splint was then removed. A Betadine prep was performed. We then draped the right upper extremity in normal, sterile orthopedic fashion. 1 g Ancef was administered IV prior to the incision by anesthesia staff. Tourniquet was never inflated. I first turned my attention to the laceration about the distal ulna. Skin edges were debrided sharply with a 15 blade scalpel. Bone ends were debrided with combination of 15 blade scalpel and rongeur. Any devitalized fascia and periosteum was excised. I then thoroughly irrigated this wound with 6 L normal saline solution utilizing cystoscopy tubing. I then extended the laceration approximately 1 cm distal to evaluate the ulnar styloid and TFCC which was not able to be retrieved out of the wound. The TFCC was attached to the ulnar styloid. This was reduced with a pointed reduction tenaculum anatomically to the ulnar head. I held this in place with 2 K wires. This provided significant improvement and stability of the wrist. I then turned my attention to the radius. I brought in C arm fluoroscopy to evaluate the fracture under traction. Traction was applied. Due to the severe comminution especially in the metadiaphyseal junction, I elected to proceed with dorsal spanning plate instead of traditional open reduction internal fixation. Articular alignment was acceptable following traction. I then marked the skin for a dorsal spanning plate utilized in the second metacarpal in the bare area of the distal radial shaft. 3 cm incisions were made overlying the dorsum of the radial shaft. Proximally, skin was sharply incised. I bluntly dissected down the level of the fascia. Fascia was split in line with the incision. Tendons were retracted radially and ulnarly gaining access to the radial shaft. Periosteum was elevated. I then turned my attention to the second metacarpal. Skin was sharply incised with a 15 blade scalpel. Dorsal veins and extensor tendon was mobilized to gain access to the second metacarpal shaft. I then passed a [place] beneath the extensor tendons to the level of the proximalmost incision. I then passed the dorsal spanning plate following the tract of the [place] from proximal to distal. I then held the plate in place with lobster-claw clamps. I secured the plate to the radial shaft with a bicortical cortex screw in the oblong hole. I then had my marketing support assistant pulled traction on the wrist. I secured the plate to the second metacarpal with a bicortical cortex screw. Provisional fluoroscopy confirmed appropriate, acceptable reduction of the distal radius. I then proceeded with additional cortical screws in the distal and proximal portions of the plate. Excellent purchase was achieved in both bones. The distal radius was stable following fixation with a dorsal spanning plate. I then turned my attention back to the ulna. K wires were removed. After removal, there was significant instability of the ulnar styloid as it was attached to the TFCC and apparently profoundly inherent involvement to the DRUJ stability. I elected to proceed with fixation of the ulnar styloid. I utilized a hook plate. This was placed over top of the K wires after they were replaced to reduce the ulnar styloid. The hook plate was then secured to bone and compressed utilizing the eccentric compression hole in the shaft of the ulna plate. Additional bicortical cortex screws were placed. Fixation appeared stable following screw placement. K wires were removed. Wounds were again copiously irrigated with normal saline solution. I then closed the wounds in layers with the forearm wounds closed with 3-0 Vicryl suture in the dermis, buried. The skin was finally reapproximated with simple 3-0 nylon suture and the ulnar laceration. The metacarpal incision was closed in interrupted horizontal mattress fashion with 4-0 nylon suture. 3-0 nylon suture was utilized in horizontal mattress fashion to close the dorsal radial incision. There was good reapproximation of the skin without undue tension. Sterile compression dressing was applied. A well-padded short arm fiberglass splint was applied. Patient was then extubated in the operative suite after anesthesia was reversed. She was transferred to her hospital bed and subsequently PACU in stable condition. Patient tolerated the procedure well without apparent complication. Intraoperative medications: 1 g Ancef IV Need for skilled marketing support assistant: Birgit Quigley PA-C was critical to the outcome of the case. During the course of the procedure the physician marketing support assistant played a vital role. Her intimate knowledge of my steps in the procedure aided in safe and expedient completion of the procedure. The PA played a vital role in positioning particularly in obtaining the appropriate positioning. The PA was also vital in the retraction of soft tissues during the exposure and protecting vital structures. She played a vital role in fracture reduction and hardware placement.. She also played a vital role in closure and splint application with my direct supervision. Post Operative Plan: Weightbearing: Nonweightbearing operative wrist and hand Antibiotics: 24 hours postoperative Ancef 1 g DVT Prophylaxis: Heparin ordered by primary. Okay to discontinue upon discharge from my standpoint. Cruz: None Dressing: Maintain splint, keep it clean dry and intact until follow-up X-Rays: 10 days postop in the office Follow-up 10 days post-operatively with me in the office
[2022-07-25] MEDS: Heparin Injection (Vial) 5,000 UNIT/ML VIAL 5000 UNIT SC (21:14)
[2022-07-25] MEDS: Senna/Docusate Sodium 1 Tablet 2 TABLET PO (21:14)
[2022-07-26 00:02] VITALS: BP 135/67; PULSE 63; RESP 14; TEMP 36.6; O2SAT 98
[2022-07-26] MEDS: Cefazolin 1 GM/50 ML BAG IV ×3 (00:33→16:06)
[2022-07-26 04:02] VITALS: BP 151/58; PULSE 80; RESP 16; TEMP 36.7; O2SAT 98
--- NOTE | 2022-07-26 05:22 | NURSING ---
all documentation by Brionna RN reviewed by this RN
[2022-07-26 06:12] LABS: Absolute Lymphocyte Count 0.64 X10^3/uL (0.83-4.51); Absolute Neutrophil Count 6.4 X10^3/uL (2.0-7.7); Basophil# 0.02 X10^3/uL; Basophil% 0.3 % (0-1); Hematocrit 28.2 % (37-47); Lymphocyte # 0.64 X10^3/ul (0.83-4.51); Lymphocyte % 8.5 % (19-41); Mean Corp Hgb Conc 31.9 g/dL (32-36); Mean Corpuscular Hgb 30.7 pg (27.0-32.0); Mean Corpuscular Volume 96.2 fL (81-99); Mean Platelet Vol. 9.3 fl (6.2-12.0); Monocyte# 0.45 X10^3/uL; NRBC Flagged by Analyzer 0 % (0-5); Neutrophil % 84.9 % (47-70); Platelet Count 197 K/mm3 (150-450); RBC Distribution Width CV 11.7 % (11.6-14.6); RBC Distribution Width SD 41.1 fl (35.1-43.9); Red Blood Count 2.93 M/mm3 (4.2-5.4); White Blood Count 7.5 K/mm3 (4.4-11.0)
[2022-07-26] MEDS: Heparin Injection (Vial) 5,000 UNIT/ML VIAL 5000 UNIT SC ×2 (06:26→14:27)
[2022-07-26 06:40] LABS: Anion Gap 3 (5-15); BUN 15 mg/dL (7-18); BUN/Creat Ratio 27.9 RATIO (10-20); Calcium,Total 8.6 mg/dL (8.5-10.1); Chloride 106 mmol/L (98-107); Creatinine, Serum 0.54 mg/dL (0.55-1.02); EST Glomerular Filtration Rate 114 mL/min (>60); Est Glom Filt Rate - Afr Amer 138 mL/min (>60); Estimated Creatinine Clearance 32.53 ml/min; Glucose 99 mg/dL (74-106); Potassium 4.4 mmol/L (3.5-5.1); Sodium Level 138 mmol/L (136-145)
[2022-07-26 07:19] VITALS: O2SAT 96
--- NOTE | 2022-07-26 07:27 | PN.ORTHO_ITS ---
Subjective Subjective Patient seen and examined at bedside this morning. She states her pain is adequately controlled with current pain regimen. Denies fevers, chills, nausea or vomiting, chest pain or shortness of breath. Tolerating oral intake. Denies numbness or tingling in the right hand. Objective Data Objective Data Vital Signs: Vital Signs Temp Pulse Resp BP Pulse Ox O2 Del Method O2 Flow Rate 98.1 F 80 16 151/58 H 98 Room Air 4 07/26/22 04:02 07/26/22 04:02 07/26/22 04:02 07/26/22 04:02 07/26/22 04:02 07/26/22 04:02 07/25/22 19:00 Oxygen Flow Rate (L/min) 4 Oxygen Delivery Method Room Air Weight: 127 lb 6.835 oz Body Mass Index (BMI) 23.3 Intake & Output: Intake and Output for Last 24 Hours 07/24/22 07/25/22 07/26/22 23:59 23:59 23:59 Intake Total 498.33 / 498.33 950 / 950 Output Total 150 / 150 350 / 350 Balance 348.33 / 348.33 600 / 600 Lab / Micro Data Attestation: I reviewed the patient's lab results. Result Diagrams: 07/26/22 06:01 07/26/22 06:01 Labs: Laboratory Results - last 24 hr 07/25/22 08:42: WBC 8.2, RBC 3.10 L, Hgb 9.8 L, Hct 30.1 L, MCV 97.1, MCH 31.6, MCHC 32.6, RDW Std Deviation 41.5, RDW Coeff of Douglas 11.9, Plt Count 227, MPV 9.5, Immature Gran % (Auto) 0.400, Neut % (Auto) 71.1 H, Lymph % (Auto) 13.4 L, [place] % (Auto) 9.2, Eos % (Auto) 5.0, Baso % (Auto) 0.9, Absolute Neuts (auto) 5.8, Absolute Lymphs (auto) 1.09, Nucleated RBC % 0 07/25/22 08:42: Sodium 140, Potassium 4.4, Chloride 105, Carbon Dioxide 29.0, Anion Gap 6, BUN 26 H, Creatinine 0.80, Estim Creat Clear Calc 44.40, Est GFR (MDRD) Af Amer 88, Est GFR (MDRD) Non-Af 73, BUN/Creatinine Ratio 32.7 H, Glucose 114 H, Calcium 9.2 07/25/22 08:42: PT 12.4, INR 1.0 07/25/22 08:42: Phosphorus 3.6, Magnesium 2.2 07/26/22 06:01: WBC 7.5, RBC 2.93 L, Hgb 9.0 L, Hct 28.2 L, MCV 96.2, MCH 30.7, MCHC 31.9 L, RDW Std Deviation 41.1, RDW Coeff of [place] 11.7, Plt Count 197, MPV 9.3, Immature Gran % (Auto) 0.300, Neut % (Auto) 84.9 H, Lymph % (Auto) 8.5 L, [place] % (Auto) 6.0, Eos % (Auto) 0.0, Baso % (Auto) 0.3, Absolute Neuts (auto) 6.4, Absolute Lymphs (auto) 0.64 L, Nucleated RBC % 0 07/26/22 06:01: Sodium 138, Potassium 4.4, Chloride 106, Carbon Dioxide 29.0, Anion Gap 3 L, BUN 15, Creatinine 0.54 L, Estim Creat Clear Calc 32.53, Est GFR (MDRD) Af Amer 138, Est GFR (MDRD) Non-Af 114, BUN/Creatinine Ratio 27.9 H, Glucose 99, Calcium 8.6 Radiography Diagnostic Testing: Radiology Impression Wrist X-Ray 07/25/22 08:25 IMPRESSION: Comminuted fractures of the distal radial metaphysis with extension to the articular surface. Dorsal dislocation of the distal ulna at the level of the radial ulnar joint. Electronically Signed: Bay Mckenzie MD at 9:34 EDT , Brain CT 07/25/22 08:33 IMPRESSION: Chronic involutional changes of the brain. Dense calcification in the cerebellar hemispheres bilaterally as well as in the basal ganglia. Pansinusitis. Electronically Signed: Bay Mckenzie MD at 9:30 EDT , Cervical Spine CT 07/25/22 08:33 IMPRESSION: Multilevel degenerative changes, as described above. Electronically Signed: Bay Mckenzie MD at 9:31 EDT , Hip/Pelvis X-Ray 07/25/22 08:33 IMPRESSION: No acute abnormality is seen. Electronically Signed: Bay Mckenzie MD at 9:34 EDT , Forearm X-Ray 07/25/22 09:05 IMPRESSION: Diffuse soft tissue swelling. Comment a fracture of the distal metaphysis with extension to the articular surface. Dorsal subluxation of the ulna at the distal radial ulnar joint. Electronically Signed: Bay Mckenzie MD at 9:32 EDT , Chest X-Ray 07/25/22 10:58 IMPRESSION: Hyperinflation. The lungs are clear. Electronically Signed: Bay Mckenzie MD at 11:11 EDT , Wrist X-Ray 07/25/22 16:45 IMPRESSION: Internal fixation of a right wrist fracture in the OR. Electronically Signed: Vasquez Borrego DO at 18:45 EDT Reading Location ID and State: [facility] / [place] Tel [phone], Service support , Rhythm Strip Rhythm Strip: Sinus Rhythm Rate: 82 Ectopy: None Physical Exam Narrative General - A&Ox3, NAD. VSS/AF. Right upper Extremity -cardinal motions of the right hand are intact. Compart ments soft and compressible. BCR in finger tips. Incisional splint and dressing C/D/I. No pain with passive stretch of the fingers or thumb. Assessment & Plan Assessment/Plan (1) Open fracture of right distal radius and ulna: PLAN: POD#1 s/p right distal radius and ulna I&D, ORIF with dorsal spanning plate of the distal radius - Pain control - Medicine following for medical management - PT/OT - DVT PPX -Heparin, SCDs, early mobilization -IV antibiotics-24 hours scheduled Ancef postoperatively. - Case management - D/C planning Patient doing well this morning. Stable for discharge this evening after final dose of Ancef from my standpoint. Follow-up approximately 10 days postoperatively. Nonweightbearing to the hand and wrist on the right side. Maintain splint until follow-up. Ice and elevation to the operative extremity.
[2022-07-26 08:40] VITALS: BP 135/59; PULSE 68; RESP 14; TEMP 36.9; O2SAT 97
[2022-07-26] MEDS: 0.9% Saline Lock 10 ML Syringe IV ×3 (08:45→16:06)
[2022-07-26] MEDS: Senna/Docusate Sodium 1 Tablet 2 TABLET PO (08:45)
--- NOTE | 2022-07-26 10:00 | DCINST_ITS ---
Discharge Instructions Diet Discharge Diet: 2000 mg Sodium Diet Activity Discharge Activity: Return to Normal Activity Weight Bearing Status: Weight bearing as tolerated Dressing / Incision Call your doctor if you observe: Fever of 101 or Higher, Numbness or Tingling, Change in Color, Inability to urinate, Inability to have a bowel movement, Using more than 1 pad per hour, Shortness of breath, Dizziness, Fainting spells, Swelling in the ankles, Chest pain, Prolonged hiccupping, Increased palpitations (irregular heartbeat), Calf discomfort and Uncontrolled pain Follow Up Care Test Results: Test results from this visit will be discussed in further detail at your follow- up appointment, if applicable. Discharge Plan Admission Admit Date/Time: 07/25/22 10:15 Primary Reason for Your Visit: Right open distal radius and ulna fractures Attending Provider: Gerard Mejias Primary Care Provider: ANIRUDH HURD Consulting Providers: Mumtaz Marshall Discharge Orders/Prescriptions Prescriptions: New oxycodone 5 mg Tablet 5 mg PO Q4H PRN PRN (Reason: Pain Score 4-5) 7 Days Qty: 28 0RF Continued aspirin 81 mg Capsule 81 mg PO DAILY losartan 50 mg Tablet 50 mg PO BID amlodipine 5 mg Tablet 5 mg PO PRN PRN (Reason: htn) pantoprazole 40 mg Tablet,Delayed Release (Dr/Ec) 40 mg PO DAILY multivitamin Tablet 1 tab PO DAILY atorvastatin 20 mg tablet 20 mg PO DAILY docusate sodium 100 mg capsule 100 mg PO DAILY vitamin B complex Tablet 1 tab PO DAILY Referrals / Follow Up: ANIRUDH HURD [Other] ANIRUDH HURD [Other] Mumtaz Marshall DO [Med Staff - Active Staff] - 08/03/22 Disposition Disposition (needs filled in before D/C Order can be placed): Home, Self Care
--- NOTE | 2022-07-26 11:55 | CASEMGMT ---
This RN CM to room to discuss d/c plan with pt/family. Pt's granddaughter at bedside interprets for pt. Pt/family state no concerns with going home at time of discharge. Pt is currently here from [place] visiting her sister, who is ill, and plans to stay here until has f/u with ortho. Pt's son/[id number]-[id number] live with her in [place] and family states no concerns with people being able to assist pt while still here in [place] and when returns home. Pt/family aware that pt to f/u with PCP if she needs any further therapy once home, voices understanding. Pt/family voice no further questions/concerns/needs. [place] PARISA JACKSON
--- NOTE | 2022-07-26 14:14 | PHA.DC.MC ---
Pharmacy Service has performed discharge medication reconciliation and counseling for this patient. The patient was counseled on the following discharge medications and changes in medications for homegoing were reviewed. 1. OXYCODONE The Reason for Use, instructions for use, and potential side effects were reviewed for all new medications. The patient's questions regarding all of their medications were answered. The patient was able to verbally demonstrate an understanding of their discharge medications. Home Medications amlodipine 5 mg tablet 5 mg PO PRN PRN htn 07/25/22 aspirin 81 mg capsule 81 mg PO DAILY heart health 07/25/22 atorvastatin 20 mg tablet 20 mg PO DAILY cholesterol 07/25/22 docusate sodium 100 mg capsule 100 mg PO DAILY health maintenance 07/25/22 losartan 50 mg tablet 50 mg PO BID blood pressure 07/25/22 multivitamin 1 tab PO DAILY health maintence 07/25/22 pantoprazole 40 mg tablet,delayed release 40 mg PO DAILY reflux 07/25/22 vitamin B complex 1 tab PO DAILY health maintenance 07/25/22 oxycodone 5 mg tablet 5 mg PO Q4H PRN PRN Pain Score 4-5 7 days #28 tabs 07/26/22 The patient's discharge medication list was reviewed for discrepancies and discrepancies were resolved.
--- NOTE | 2022-07-26 15:50 | PCM.DC.SUM ---
Providers Date of Admission: 07/25/22 Date of Discharge: 07/26/22 Primary Care Physician: ANIRUDH HURD Consultations 07/25/22 10:48 Consult: Orthopedics Routine Consulting Provider: Mumtaz Marshall Reason for Consult: right wrist open fracture EMERGENT Consult: No MD Notified: Yes Date Notified: 07/25/22 Time Notified: 10:49 Method of Notification: ED Physician Initiated Reason For Visit: RIGHT WRIST/RADIUS FRACTURE Diagnosis Discharge Diagnosis (1) Open fracture of right distal radius and ulna: Status: Acute Code(s): S52.501B - Unspecified fracture of the lower end of right radius, initial encounter for open fracture type I or II; S52.601B - Unspecified fracture of lower end of right ulna, initial encounter for open fracture type I or II Medications at Discharge Home Medications amlodipine 5 mg tablet 5 mg PO PRN PRN htn 07/25/22 aspirin 81 mg capsule 81 mg PO DAILY heart health 07/25/22 atorvastatin 20 mg tablet 20 mg PO DAILY cholesterol 07/25/22 docusate sodium 100 mg capsule 100 mg PO DAILY health maintenance 07/25/22 losartan 50 mg tablet 50 mg PO BID blood pressure 07/25/22 multivitamin 1 tab PO DAILY health maintence 07/25/22 pantoprazole 40 mg tablet,delayed release 40 mg PO DAILY reflux 07/25/22 vitamin B complex 1 tab PO DAILY health maintenance 07/25/22 oxycodone 5 mg tablet 5 mg PO Q4H PRN PRN Pain Score 4-5 7 days #28 tabs 07/26/22 Hospital Course Summary of Care Provided Hospital Course: This 86-year-old female is being admitted after trip and fall resulting into open right wrist fracture 1. Open comminuted fracture of distal right metaphysis with extension to the articular surface and dorsal dislocation and fracture of ulnar styloid process after fall probably due to underlying osteoporosis: Patient is being admitted on [facility] floor. Pain control. PT and OT ordered. X-ray individually reviewed and is documented as above. [facility] was consulted. CT head and C-spine without contrast in ED reviewed. No acute abnormality but chronic changes. Hip and pelvis x-ray no acute abnormality. 07/26: Patient had right grade 2 open distal radius and ulnar fracture. Irrigation and debridement of skin subtenons tissue fascia and bone 2 x 1 cm, ORIF right ulnar styloid process and application of dorsal spanning plate right wrist was done on 07/25. Patient had IV cefazolin during perioperative period and 3 dosages today. Discussed with orthopedic surgeon Dr. Marshall. No requirement for further antibiotic. Patient is given prescription of [place] by Dr. Guicho Hennessy and follow-up with him 10 days postop. Nonweightbearing to the hand and wrist on right side. Maintain splint until follow-up. Ice and elevation to right upper extremity. Perioperative risk evaluation: Prior to fall, patient was active did not had restriction in walking or climbing stairs. No shortness of breath or dyspnea on exertion. Patient did not have chronic cardiac disease or chronic lung disease. Overall, she is low to moderate perioperative risk for moderate risk procedure. Electrolytes sodium, potassium, magnesium and phosphorus are in normal range. 2. Hypertension: BP is 143/53. Heart rate sinus rhythm. Twelve-lead EKG normal sinus rhythm at 82 bpm, QTC 425 ms. Chest x-ray initially reviewed and no active cardiopulmonary abnormality. 3. GERD: On PPI. 4. VTE prophylaxis, moderate risk: Heparin 5000 subcutaneous every 8 hourly started after surgery when hemostasis is controlled. Bilateral SCDs Discharge medication reconciliation done. Discharge follow-up instructions completed. Discharge process discussed with the patient and all questions were answered to patient's satisfaction. Total time spent, exact 35 minutes on discharge meds reconciliation, examination, coordination of care with nurses and ancillary staff, review of imaging and blood test and discussion with the patient on follow-up instructions. Living will/advanced directive/end of life care: Patient does not have living will or advanced directive. Patient next to kin is her son. I talked to patient's son over the phone and daughter present in the room. After discussion of benefits/risks procedures involved with full code, DNR CC arrest and DNR CC, all 3 agreed for full code. They will make living will/advanced directive with power of ip technology transactions attorney for health later on. Patient, her son and daughter do want artificial life support including intubation, tube feed, ventilator and/chest compression, central venous catheter, vasopressor and DC shock if needed Total time spent in onsk-gk-noct encounter in discussion of advanced directive 16 minutes. Clinical Impression(s) from Imaging Studies Wrist X-Ray 07/25/22 08:25 IMPRESSION: Comminuted fractures of the distal radial metaphysis with extension to the articular surface. Dorsal dislocation of the distal ulna at the level of the radial ulnar joint. Brain CT 07/25/22 08:33 IMPRESSION: Chronic involutional changes of the brain. Dense calcification in the cerebellar hemispheres bilaterally as well as in the basal ganglia. Pansinusitis. Cervical Spine CT 07/25/22 08:33 IMPRESSION: Multilevel degenerative changes, as described above. Hip/Pelvis X-Ray 07/25/22 08:33 IMPRESSION: No acute abnormality is seen. Forearm X-Ray 07/25/22 09:05 IMPRESSION: Diffuse soft tissue swelling. Comment a fracture of the distal metaphysis with extension to the articular surface. Dorsal subluxation of the ulna at the distal radial ulnar joint. Chest X-Ray 07/25/22 10:58 IMPRESSION: Hyperinflation. The lungs are clear. Electronically Signed: Bay Mckenzie MD at 11:11 EDT , Physical Exam Narrative Seen and examined on the day of discharge. Pain is well controlled. Patient had surgery yesterday. Right forearm and wrist on the splint on resting position. General: Alert, Oriented x3, Cooperative. HEENT: Atraumatic, PERRLA, EOMI, Normocephalic Oral: No Gingival or Mucosal Lesions/ Ulcerations Neck: Supple, No JVD, Negative Carotid Bruits Lungs: Air entry equal in bilateral lung bases. No crepitation/rhonchi Cardiovascular: Regular rate, Regular Rhythm, Normal S1, Normal S2, No murmurs. Pulses felt in right both radial and ulnar artery Abdomen: Bowel Sounds Present, Soft, Non Tender, Non-Distended : No renal angle tenderness. No suprapubic tenderness. Extremities: No edema, Capillary Refill Less than 3 Seconds Skin: Open fracture of right wrist radius. Musculoskeletal: Right forearm and wrist on supine position on the splint. Jesus wrap bandage on. Mild edema and tenderness. Neurological: Cranial nerves II-XII grossly intact, DTR 2+/4 and Symmetrical, Neuro grossly intact Psych/Mental Status: Flat affect. Weight / BMI Weight Weight: 127 lb 6.835 oz Body Mass Index (BMI) 23.3 ABG / Lab / Microbiology Data Result Diagrams: 07/26/22 06:01 07/26/22 06:01 Laboratory: Laboratory Results - last 24 hr 07/26/22 06:01: WBC 7.5, RBC 2.93 L, Hgb 9.0 L, Hct 28.2 L, MCV 96.2, MCH 30.7, MCHC 31.9 L, RDW Std Deviation 41.1, RDW Coeff of [place] 11.7, Plt Count 197, MPV 9.3, Immature Gran % (Auto) 0.300, Neut % (Auto) 84.9 H, Lymph % (Auto) 8.5 L, [place] % (Auto) 6.0, Eos % (Auto) 0.0, Baso % (Auto) 0.3, Absolute Neuts (auto) 6.4, Absolute Lymphs (auto) 0.64 L, Nucleated RBC % 0 07/26/22 06:01: Sodium 138, Potassium 4.4, Chloride 106, Carbon Dioxide 29.0, Anion Gap 3 L, BUN 15, Creatinine 0.54 L, Estim Creat Clear Calc 32.53, Est GFR (MDRD) Af Amer 138, Est GFR (MDRD) Non-Af 114, BUN/Creatinine Ratio 27.9 H, Glucose 99, Calcium 8.6 Radiography Diagnostic Testing: Radiology Impression Wrist X-Ray 07/25/22 16:45 IMPRESSION: Internal fixation of a right wrist fracture in the OR. Electronically Signed: Vasquez Borrego DO at 18:45 EDT Reading Location ID and State: [address] [place] [address] Tel [phone], Service support , D/C Instructions Discharge Diet: 2000 mg Sodium Diet Weight Bearing Status: Weight bearing as tolerated Call your doctor if you observe: Fever of 101 or Higher, Numbness or Tingling, Change in Color, Inability to urinate, Inability to have a bowel movement, Using more than 1 pad per hour, Shortness of breath, Dizziness, Fainting spells, Swelling in the ankles, Chest pain, Prolonged hiccupping, Increased palpitations (irregular heartbeat), Calf discomfort and Uncontrolled pain Meaningful Use Info Meaningful Use Diagnoses (Choose all that apply): None applicable Discharge Plan Admission Admit Date/Time: 07/25/22 10:15 Primary Reason for Your Visit: Right open distal radius and ulna fractures Attending Provider: Gerard Mejias Primary Care Provider: ANIRUDH HURD Consulting Providers: Mumtaz Marshall Discharge Orders/Prescriptions Prescriptions: New oxycodone 5 mg Tablet 5 mg PO Q4H PRN PRN (Reason: Pain Score 4-5) 7 Days Qty: 28 0RF Continued aspirin 81 mg Capsule 81 mg PO DAILY losartan 50 mg Tablet 50 mg PO BID amlodipine 5 mg Tablet 5 mg PO PRN PRN (Reason: htn) pantoprazole 40 mg Tablet,Delayed Release (Dr/Ec) 40 mg PO DAILY multivitamin Tablet 1 tab PO DAILY atorvastatin 20 mg tablet 20 mg PO DAILY docusate sodium 100 mg capsule 100 mg PO DAILY vitamin B complex Tablet 1 tab PO DAILY Referrals / Follow Up: ANIRUDH HURD [Other] ANIRUDH HURD [Other] Mumtaz Marshall DO [Med Staff - Active Staff] - 08/03/22 Disposition Disposition (needs filled in before D/C Order can be placed): Home, Self Care Charges/Coding Visit Charges OBSV E&M: 21577 Observation care discharge
[2022-07-26 16:07] VITALS: BP 142/55; PULSE 73; RESP 16; TEMP 36.6; O2SAT 96
[2022-07-26] MEDS: oxyCODONE 5 MG Tablet PO (16:42)
== END 2022-07-26 11:44 | disposition home or self-care (01) ==
LOC: ED 10:01 → PCU 10:46
PROVIDERS: Student in an Organized Health Care Education/Training Program; Admitting Provider Internal Medicine; Emergency Provider Emergency Medicine; Visit Provider Internal Medicine
PROC: (CPT 25575; principal; 2022-07-25 16:30)
DX: S52.591B Other fractures of lower end of right radius, initial encounter for open fracture type I or II (principal); M25.552 Pain in left hip; W01.0XXA Fall on same level from slipping, tripping and stumbling without subsequent striking against object, initial encounter; I10 Essential (primary) hypertension; Z79.82 Long term (current) use of aspirin; D64.9 Anemia, unspecified; K21.9 Gastro-esophageal reflux disease without esophagitis; S09.90XA Unspecified injury of head, initial encounter; Y93.9 Activity, unspecified; Y99.9 Unspecified external cause status; S52.691B Other fracture of lower end of right ulna, initial encounter for open fracture type I or II; Y92.9 Unspecified place or not applicable; Z23 Encounter for immunization; Z79.899 Other long term (current) drug therapy
CPT/HCPCS: 25575; 11012; 01830; 36415; 70450; 71045; 72125; 73090; 73110; 73502; 76000; 80048; 83735; 84100; 85025; 85610; 90715; 93005; 96361; 96365; 96366; 96372; 96375; 96376; 97162; 97166; 99218; 99251; 99285; C1713; J7030; J7120; A4216; G0378; G0463; J2405

== ENCOUNTER → 2022-09-24 | Outpatient (CLI) | payer MEDICAID, SELFPAY ==
--- NOTE | 2022-09-24 12:50 | RAD_ITS ---
STUDY: X-RAY CHEST REASON FOR EXAM: Female, 87 years old. PREOP TECHNIQUE: PA or AP COMPARISON: 07/25/2022 FINDINGS: Over aeration consistent with COPD is again noted. There is new mild right middle lobe and lingular atelectasis or less likely fibrosis. There is no demonstrated pleural abnormality. Normal size heart. Normal mediastinum and humble. Normal visualized pulmonary arteries. Normal visualized aortic arch and descending thoracic aorta. Changes thoracic spine. Normal visualized ribs, clavicles, and shoulders. There is no demonstrated abnormality of the visualized soft tissue structures of the upper abdomen. RAD/Chest PA and Lateral IMPRESSION: Mild right middle lobe and lingular fibrosis or atelectasis Electronically Signed: Rodrigo Edmond MD, ALANIS at 16:54 EDT ,
[2022-09-24 13:05] LABS: Hematocrit 32.7 % (37-47); Hemoglobin 10.8 g/dL (12.0-15.0); Mean Corpuscular Hgb 32.4 pg (27.0-32.0); Mean Corpuscular Volume 98.2 fL (81-99); Mean Platelet Vol. 9.4 fl (6.2-12.0); Platelet Count 237 K/mm3 (150-450); RBC Distribution Width CV 11.4 % (11.6-14.6); RBC Distribution Width SD 41.4 fl (35.1-43.9); Red Blood Count 3.33 M/mm3 (4.2-5.4); White Blood Count 6.2 K/mm3 (4.4-11.0)
[2022-09-24 13:45] LABS: Anion Gap 4 (5-15); BUN 22 mg/dL (7-18); BUN/Creat Ratio 33.1 RATIO (10-20); Calcium,Total 9.3 mg/dL (8.5-10.1); Chloride 109 mmol/L (98-107); Creatinine, Serum 0.66 mg/dL (0.55-1.02); EST Glomerular Filtration Rate 90 mL/min (>60); Est Glom Filt Rate - Afr Amer 108 mL/min (>60); Glucose 118 mg/dL (74-106); Potassium 4.3 mmol/L (3.5-5.1); Sodium Level 140 mmol/L (136-145)
== END | disposition home or self-care (01) ==
LOC: PAT 11-12 12:07
PROVIDERS: Referring Provider Student in an Organized Health Care Education/Training Program; Visit Provider Student in an Organized Health Care Education/Training Program
DX: Z01.818 Encounter for other preprocedural examination (principal); Z01.811 Encounter for preprocedural respiratory examination
CPT/HCPCS: 36415; 71046; 80048; 85027